=== PATIENT | female | born 1990 | race Hispanic/Latino ===

== ENCOUNTER 2017-10-27 05:01 | Inpatient (IN) | payer OTHER ==
[~2017-10-27] VITALS: Ht 154.9 cm; Wt 77.1 kg
[2017-10-27 05:39] VITALS: BP 129/73
[2017-10-27 06:01] LABS: ABSOLUTE BASOPHIL COUNT 0 /CUMM (0.0-0.2); ABSOLUTE EOSINOPHIL COUNT 0 /CUMM (0.0-0.7); ABSOLUTE LYMPH COUNT 1.6 /CUMM (1.2-3.4); ABSOLUTE MONOCYTE COUNT 0.8 /CUMM (0.10-0.60); BASOPHIL % 0.2 % (0.0-2.0); EOSINOPHIL % 0.3 % (0-5); GRANULOCYTE % 80.1 % (42.2-75.2); HEMATOCRIT 33.8 % (37-47); MEAN CORPUSCULAR HGB 25.3 PG (27.0-31.0); MEAN CORPUSCULAR HGB CONC 32.7 G/DL (33.0-37.0); MEAN CORPUSCULAR VOLUME 77.4 FL (81.0-99.0); MEAN PLATELET VOLUME 8.1 FL (7.4-10.4); PLATELET COUNT 367 /CUMM (130-400); RBC DISTRIBUTION WIDTH 14.6 % (11.5-14.5); RED BLOOD CELL CT 4.37 /CUMM (4.20-5.40); WHITE BLOOD CELL COUNT 12.5 /CUMM (4.8-10.8)
--- NOTE | 2017-10-27 07:32 | History & Physical ---
General Information and HPI MD Statement: I have seen and personally examined KODY AGUILA and documented this H&P. The patient is a 27 year old female at [38] weeks and [5] days gestation who presented with a chief complaint of [active labor]. History of Present Illness: 27 yo lmp01/28/17 edc 11/04/17 at 38w5d in active labor. 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 EENTM: Reports: no symptoms. Cardiovascular: Reports: no symptoms. Respiratory: Reports: no symptoms. GI: Reports: no symptoms. Genitourinary: Reports: no symptoms. Musculoskeletal: Reports: no symptoms. Skin: Reports: no symptoms. Neurological/Psychological: Reports: no symptoms. Hematologic/Endocrine: Reports: no symptoms. Immunologic/Allergic: Reports: no symptoms. All Other Systems: Reviewed and Negative Exam & Diagnostic Data Last 24 Hrs of Vital Signs/I&O Vital Signs Date Time Temp Pulse Resp B/P B/P Pulse O2 O2 Flow FiO2 Mean Ox Delivery Rate 10/27 0539 129/73 Intake & Output 10/27 0800 10/27 0000 10/26 1600 Intake Total Output Total Balance Patient 170 lb Weight Obstetric Exam Wgt Gained During : 40 Pelvimetry: gynecoid Dilation (cm): 3 Effacement (%): 50 Station: 0 Membranes: intact Fluid: unknown Fundal Height (cm): 39 Multiple Gestation? No Contractions: q2 #1 - FHR Baseline: 140 Category: 1 Estimated Weight: 6.5 Presentation: cephalic Patient for Induction? No Physical Exam: chest cta cv nl s1s2 abd gravid ext no c/c/e Labs Blood Type & Rh: O pos Antibody Screen: neg Hct/Hgb & Platelets #1: 39/12/ Hct/Hgb & Platelets #2: 32/10/298 Rubella: imm VDRL #1: nr VDRL #2: nr HbsAg: neg HIV #1: neg HIV #2 neg 1 Hr P Group B Strep: neg Initial Ultrasound: wnl Anatomy Ultrasound: wnl Ultrasound for EFW: 6.5 Genetic Testing: neg Assessment/Plan As Ranked By This Provider Problem List: 1. Core Measures Venous Thromboembolism VTE Risk Factors / No Mechanical VTE Prophylaxis d/t Early Ambulation No VTE Pharm Prophylaxis d/t Bleeding (Active)
[2017-10-28 08:06] LABS: ABSOLUTE BASOPHIL COUNT 0.1 /CUMM (0.0-0.2); ABSOLUTE EOSINOPHIL COUNT 0.2 /CUMM (0.0-0.7); ABSOLUTE GRANULOCYTE CT 11.1 /CUMM (1.4-6.5); ABSOLUTE LYMPH COUNT 3.2 /CUMM (1.2-3.4); ABSOLUTE MONOCYTE COUNT 1.3 /CUMM (0.10-0.60); BASOPHIL % 0.4 % (0.0-2.0); EOSINOPHIL % 1.6 % (0-5); GRANULOCYTE % 70.1 % (42.2-75.2); MEAN CORPUSCULAR HGB 25.5 PG (27.0-31.0); MEAN CORPUSCULAR HGB CONC 32.5 G/DL (33.0-37.0); MEAN CORPUSCULAR VOLUME 78.6 FL (81.0-99.0); MEAN PLATELET VOLUME 8.3 FL (7.4-10.4); PLATELET COUNT 289 /CUMM (130-400); RBC DISTRIBUTION WIDTH 14.7 % (11.5-14.5); RED BLOOD CELL CT 3.59 /CUMM (4.20-5.40); WHITE BLOOD CELL COUNT 15.9 /CUMM (4.8-10.8)
[2017-10-28 08:20] LABS: HEMATOCRIT 28.2 % (37-47)
--- NOTE | 2017-10-28 11:00 | PN- Post Delivery/GYN ---
Subjective Subjective: no c/o Objective Last 24 Hrs of Vital Signs/I&O as per paper chart Physical Exam: pe female Abdomen soft nontender Fundus firm nontender Lochia minimal Surgeries negative edema negative Homans Assessment/Plan Assessment/Plan assess s/p plan cont ppc
[2017-10-29] MEDS ORDERED: DOCUSATE SODIU100 M3 PO (08:49)
[2017-10-29] MEDS ORDERED: IBUPROFEN800 M1 PO (08:49)
== END 2017-10-29 12:30 | DRG 560 ==
LOC: CBCO 05:01 → GNO 05:19
PROVIDERS: Obstetrics & Gynecology
PROC: 10E0XZZ Delivery of Products of Conception, External Approach (ICD-10-PCS; principal; 2017-10-27)
DX: O77.0 Labor and delivery complicated by meconium in amniotic fluid (principal); Z3A.38 38 weeks gestation of pregnancy; Z37.0 Single live birth; O71.82 Other specified trauma to perineum and vulva
CPT/HCPCS: GNOS; 36415; 81001; 87086; J7120